=== PATIENT | male | born 1955 | race Caucasian/White ===

== ENCOUNTER 2018-10-19 06:31 | Observation (INO) | payer OTHER ==
[2018-10-19] VITALS (13 sets, daily range): BP systolic 85–120; BP diastolic 43–72
[~2018-10-19] VITALS: Ht 188 cm; Wt 86.7 kg
[~2018-10-19 06:31] MED LIST: BRILINTA90 MG PO; CLOPIDOGREL75 MG PO; ELIQUIS5 MG PO; FISH OIL 1,001000 M2 PO; GINKGO BILOBA120 M1 PO; IBUPROFEN 800800 M1 PO; LEVITRA20 MG PO; LIPITOR80 MG PO; LOVASTATIN 20 M20 MG PO; MELATONIN5 M1 PO; NOHOMEMEDICATIONS; RESTORIL15 MG PO; SORINE 80 MG TA80 M1 PO; SOTALOL80 MG PO; THERA-M CAPLET1 EAC2 PO; TYLENOL325 MG PO; ZANTAC 150MG T150 MG PO
[2018-10-19 07:19] LABS: ABSOLUTE NEUTROPHILS 5.6 thou/uL (1.4-8.2); BASOPHILS 0.7 % (0.0-2.0); EOSINOPHILS 1.5 % (0.0-3.0); HEMOGLOBIN 14.9 gm/dL (14.0-18.0); LYMPHOCYTES 17.9 % (24.0-44.0); MCH 30.7 pg (26.0-34.0); MCHC 33.9 g/dL (28.0-37.0); MCV 90.8 fL (80.0-100.0); MONOCYTES 6.4 % (1.0-8.0); PLATELET COUNT 199 thou/uL (150-400); POLYS 73.5 % (36.0-66.0); RBC 4.84 mil/uL (4.50-6.00); RDW 13.7 % (10.5-14.5); WBC 7.6 thou/uL (4.0-11.0)
[2018-10-19 07:27] LABS: POTASSIUM 3.9 mmol/L (3.5-5.1)
--- NOTE | 2018-10-19 18:49 | NUR ---
ASSUMED CARE AT 1400, SHIFT ASSESSMENT DONE, MEDS GIVEN, VSS. CAME FROM ABLATION AT 1400, MYNX CLOSURE DEVICE, CLEAN, DRY, INTACT, SOFT TO TOUCH, NO HEMATOMA. WAS ON BEDREST UNTIL 1730. JARAMILLO WAS TAKEN OUT AFTER BEDREST WAS OVER. PT ABLE TO URINATE AFTERWARDS. DID REPORT OF BURNING WITH URINATION WHEN JARAMILLO WAS IN, DR JIMENEZ WAS CALLED, INSRUCTED TO GIVE PAIN MED, ADMINISTERED WITH RELIEF. WILL CONTINUE TO ASSESS AND ASSIST WITH ADLs NEEEDED.
[2018-10-20 03:59] VITALS: BP 102/57
--- NOTE | 2018-10-20 06:00 | NUR ---
A/O X 4.DENIES PAIN.RIGHT GROIN DRESSING C/D/I.NO HEMATOMA NOTED.MONITOR SHOWS SINUS VIVIANE IN THE 40'S TO 50'S.WILL MONITOR AND CONTINUE POC.
[2018-10-20 07:45] VITALS: BP 98/49
[2018-10-20 10:40] VITALS: BP 98/49
[2018-10-20 11:36] VITALS: BP 103/51
--- NOTE | 2018-10-20 22:51 | D ---
[facility] [place] [address] DISCHARGE SUMMARY Name: CRISTIAN HERBERT Room #: 204-P [facility] Pretty Mckinney#: [id number] Admission: 10/19/18 ������������������ Attend Phys: Dalton Koo MD Discharge: 10/20/18 ������������������ Date of : 59 Report #: [id number] THIS REPORT FOR: //name// CC: Fuentes Koo [facility] DATE OF SERVICE: 10/20/2018 FINAL DIAGNOSES: 1. Atrial fibrillation status post ablation. 2. History of coronary artery disease with stent placement. 3. Tobacco use. 4. Hypertension. 5. Bradycardia. HOSPITAL COURSE: Please see the original H and P for full details. The patient has a history of paroxysmal atrial fibrillation with a prior history of cardioversion. He had been maintained on antiarrhythmic therapy, however, presented with recurrent atrial fibrillation with a rapid ventricular rate. He presented electively for an atrial fibrillation ablation, performed by Dr. Koo. He remained stable overnight. No further episodes of atrial fibrillation. He remained stable and will be discharged home. He will continue on Plavix 75 mg daily, Lipitor 80 mg, Eliquis 5 mg twice a day, sotalol as directed. He is instructed to follow up with his elementary secretary and Dr. Koo. ��������������������������������������������� <ELECTRONICALLY SIGNED> ���������������������������������������� By: Venkata Alexis MD ��������������������������������������������� 10/20/18 2251 1029 1811 MD richar Gomez
--- NOTE | 2018-10-23 17:05 | P ---
[facility] [place] [address] PROCEDURE REPORT Name: CRISTIAN HERBERT Room #: 204-P [facility] M.R.#: [id number] Admission: 10/19/18 ������������������ Attend Phys: Dalton Koo MD Discharge: 10/20/18 ������������������ Date of : 59 Report #: [id number] THIS REPORT FOR: //name// CC: Fuentes Koo [facility] DATE OF SERVICE: 10/19/2018 PREOPERATIVE DIAGNOSIS: Atrial fibrillation. POSTOPERATIVE DIAGNOSIS: Atrial fibrillation. PROCEDURES PERFORMED: 1. Atrial fibrillation ablation, CPT code 87838. 2. 3D mapping, CPT code 35437. 3. Intracardiac echo, CPT code 13915. HISTORY: The patient is a 63-year-old with history of AFib, here for ablation. ANESTHESIA: The patient underwent general anesthesia with no anesthesia related complications. DESCRIPTION OF PROCEDURE: The patient underwent informed consent. We discussed the details of the procedure including the risks, which include but not limited to bleeding, vascular damage, cardiac perforation, stroke and [place]. He understood these risks and is willing to proceed. The patient was brought to the EP laboratory in a fasting and sedated state, prepped and draped in a sterile fashion. I obtained access to the right femoral vein x 3, placing an 8, 9 and 7-Kenyan short sheath using the modified Seldinger technique. Next, under fluoroscopy, I placed a decapolar catheter easily in the coronary sinus and an ICE catheter in the right atrium. Using intracardiac ultrasound, I created a detailed 3D geometry of the left atrium and this was merged with the cardiac CT scan. At baseline, the patient was in sinus rhythm with a sinus cycle length of 1110 milliseconds, TX interval 165 milliseconds, QRS duration 90 milliseconds, QT interval 450 milliseconds. The patient did have periods of time when he would go into a junctional rhythm. Next, the patient was systemically heparinized and a transseptal was performed using an SL1 sheath and a Graham needle. The patient had a nice thin interatrial septum and came on with the Graham needle and advanced the wire into the left common ostium. Of note, the patient had a large left common ostium with the superior and inferior branch and a right superior and right inferior branch. I could not easily cross with the SL1 sheath, therefore, I left the wire in the left common and then I advanced the cryo sheath into the left atrium without any issues. Next, I placed a [employer] Huff Lasso catheter in the left atrium and created [facility] [address] [place] [address] PROCEDURE REPORT Name: CRISTIAN HERBERT Room #: 204-P [facility]..#: [id number] Admission: 10/19/18 ������������������ Attend Phys: Dalton Koo MD Discharge: 10/20/18 ������������������ Date of : 59 Report #: [id number] a 3D voltage map of the left atrium, which showed that the left and right-sided veins were connected. The voltage in the left atrium was otherwise healthy. I placed the cryoballoon into the left atrium and I started by freezing the upper branch of the left common ostium. I performed an initial 4-minute freeze and then performed a second 4-minute freeze with a slightly more deflected approach with the balloon, which resulted in good occlusion. This resulted in isolation of the left superior branch within 17 seconds. The second freeze was of 4 minutes' duration. I then turned my attention to the left lower branch and this appeared to be almost isolated. There were some small signals noted. Therefore, I performed a single freeze in this lower branch that was of 4 minutes' duration and the signals in this vein isolated within 28 seconds. I therefore re-interrogated the entire left common ostium and it appears that this was isolated. I then turned my attention to the right-sided veins and placed the decapolar catheter into the subclavian vessel and performed phrenic nerve pacing from this position. The first freeze had very good temps that reached -54 degrees. I came off at around 80 seconds as I started noticing that the phrenic was starting to weaken. I waited for 2 to 3 minutes and the phrenic returned to 100% strength. I therefore performed a second freeze in this vessel that was somewhat less occlusive than the first freeze and this vein remained isolated. I then turned my attention to the right inferior pulmonary vein. I performed a 90-second freeze and came off early because the temps were reaching -55 degrees. The vein did isolate within 45 seconds and during this freeze there was never any issues with the phrenic nerve. Therefore, again I performed a less occlusive freeze of the right inferior pulmonary vein and this freeze was of 180 seconds duration. Next, I removed my cryoballoon from the left atrium and placed the Lasso catheter back and created a voltage map and this demonstrated that we had created a wide circumferential ablation of the left common ostium and the right-sided veins. As such, I now performed a basic EP study. Atrial burst pacing was performed from the decapolar catheter placed in the CS. AV block was noted at 300 milliseconds. Atrial ERP was noted 230 milliseconds at [address] cycle length. Double atrial extrastimuli were delivered and no SVT was induced. I then performed aggressive atrial burst pacing between 270-290 milliseconds with no induction of any AFib or atrial flutter. As such, the procedure was concluded. The patient received systemic protamine and once ACT was within acceptable range, catheters and sheaths were pulled. Hemostasis was obtained. The patient awoke neurologically and hemodynamically intact. No complications and no significant bleeding. CONCLUSIONS: 1. Successful AFib ablation with wide circumferential ablation of the left and [facility] [address] [place] [address] PROCEDURE REPORT Name: CRISTIAN HERBERT Room #: 204-P [facility] Pretty Mckinney#: [id number] Admission: 10/19/18 ������������������ Attend Phys: Dalton Koo MD Discharge: 10/20/18 ������������������ Date of : 59 Report #: [id number] right-sided veins. 2. Normal EP study with no inducible arrhythmias. ��������������������������������������������� <ELECTRONICALLY SIGNED> ���������������������������������������� By: Dalton Koo MD ��������������������������������������������� 10/23/18 1705 1231 0208 Dalton Koo MD /nt
== END 2018-10-20 14:27 | disposition home or self-care (01) ==
LOC: CATH 06:31 → 2N 09:40
PROVIDERS: ADMIT Internal Medicine Cardiovascular Disease
DX: I48.91 Unspecified atrial fibrillation (principal); I25.10 Atherosclerotic heart disease of native coronary artery without angina pectoris; I10 Essential (primary) hypertension; Z72.0 Tobacco use; Z95.5 Presence of coronary angioplasty implant and graft
CPT/HCPCS: 62110; 62900; 65020; 65040; 70005

== ENCOUNTER 2019-02-15 06:27 | Inpatient (IN) | payer BC, OTHER ==
[~2019-02-15] VITALS: Ht 188 cm; Wt 82.0 kg
--- NOTE | ~2019-02-15 | P ---
[facility] [place] [address] PROCEDURE REPORT Name: KEONCRISTIAN MAURICIO [facility] [id number] Admission: 02/15/19 Attend Phys: Dalton Koo MD Discharge: Date of : 59 Report #: [id number] THIS REPORT FOR: //name// CC: Dalton Samaniego PREOPERATIVE DIAGNOSES: 1. Atrial fibrillation. 2. Typical atrial flutter. HISTORY: The patient is a 63-year-old male status post recent AFib ablation. Post-procedure, he has had 2 episodes of typical atrial flutter after stopping his sotalol therapy. He is here for a repeat AFib ablation and atrial flutter ablation. PROCEDURES PERFORMED: 1. AFib ablation, CPT code 13850. 2. Program stimulation pacing after IV drug infusion, CPT code 50143. 3. 3D mapping, CPT code 69750. 4. Intracardiac echo, CPT code 85091. 5. Second pathway ablation, CPT code 26015. ANESTHESIA: The patient underwent general anesthesia with no anesthesia related complications. DESCRIPTION OF PROCEDURE: The patient underwent informed consent, where we discussed the details of the procedure including the risks, which include but not limited to bleeding, infection, vascular damage, cardiac perforation as well as stroke or [place]. He understood these risks and is willing to proceed. The patient was brought to the EP laboratory in a fasting and sedated state, prepped and draped in a sterile fashion. I obtained access to the bilateral femoral veins placing two 8-Mongolian short sheaths in the right femoral vein and a 7 and 9-Mongolian short sheath in left femoral vein using the modified Seldinger technique. Next, under fluoroscopy, a decapolar catheter was easily placed into the coronary sinus and ice catheter was placed in the right atrium. At baseline, the patient was in sinus rhythm with periods of junctional rhythm. Using intracardiac ultrasound, I created a 3D geometry of the left atrium with evidence of a left common ostium and right superior and right inferior pulmonary veins. The patient was systemically heparinized and a transseptal was performed with the SL1 sheath and a [place] needle. He has a nice thin interatrial septum and the transseptal was straightforward. Once the SL1 was in the left atrium, I placed a PentaRay catheter in the left atrium and created a detailed 3D geometry and voltage map of the left atrium. There was evidence of reconnection of the left common ostium at the inferior aspect of the vein. The superior branch appeared to be isolated. I had difficulties getting my PentaRay into the inferior branch. The right superior vein was isolated and the right inferior [address] [address] PROCEDURE REPORT Name: CRISTIAN HERBERT Room #: REG [facility] Mckinney#: [id number] Admission: 02/15/19 Attend Phys: Dalton Koo MD Discharge: Date of : 59 Report #: [id number] pulmonary vein had 1 very small potential that captured, but essentially appeared to be completely isolated. I therefore exchanged my PentaRay for an ablation catheter and I re-isolated the left common ostium, starting from the posterior roof region and ablating all the way down inferiorly and then anteriorly below the common ostium. I then turned my attention to the right inferior pulmonary vein and I performed ablation at the areas of signals along the posterior cristina of the vein. A repeat voltage map was created and now there was clear isolation of these veins. As such, I pulled over to the right atrium to proceed with atrial flutter ablation. SECOND ABLATION FOR TYPICAL ATRIAL FLUTTER: Next, an atrial flutter ablation was performed. I initially attempted to perform this using just the ablation catheter via the 8-Mongolian short sheath. The transisthmus conduction time pre-ablation was 50 milliseconds. I performed a continuous drag lesion at 6 o'clock along the cavotricuspid isthmus and there was not evidence of block. I therefore attempted to ablate via the SL1 sheath, but this was unsuccessful. Therefore, I exchanged to a ramp sheath and performed additional ablation. Despite this, it still did not appear that we had bidirectional block. I therefore placed [facility] [place] Livewire catheter to better visualize transconduction along the isthmus. This was verified that we did not have block. I therefore now performed a more lateral line and there were significant signals in this area. I continued pulling back and connected this more lateral line with my other line. Then, I performed testing and we now had clear evidence of bidirectional block with transisthmus conduction time of 135 milliseconds with differential pacing also consistent with lateral to medial block. POST-ABLATION ELECTROPHYSIOLOGY STUDY: Post-ablation EP study was performed. At baseline, AV block was noted at 310 milliseconds. Atrial ERP was noted at 280 milliseconds at a [address] cycle length. Double atrial extrastimuli were delivered and no SVT was induced. Next, isoproterenol infusion was started at 2 mcg per minute and once this took effect, additional testing was performed. AV block was now noted at 280 milliseconds and atrial ERP was at 270 milliseconds at [address] cycle length. As such, the patient had no inducible arrhythmias and the procedure was concluded. Using intracardiac ultrasound, I verified there was no pericardial effusion. The patient received systemic protamine. Once ACT was within acceptable range, all catheters and sheaths were pulled and hemostasis obtained. The patient awoke neurologically and hemodynamically intact. No complications and no significant bleeding. CONCLUSIONS: 1. Successful AFib ablation with re-isolation of the left common ostium in the right inferior pulmonary vein. 2. Successful atrial flutter ablation with evidence of bidirectional block. [facility] [address] [place] [address] PROCEDURE REPORT Name: CRISTIAN HERBERT Room #: REG FRANCOISE Mckinney#: [id number] Admission: 02/15/19 Attend Phys: Dalton Koo MD Discharge: Date of : 59 Report #: [id number] 3. Normal EP study on and off isoproterenol infusion with no inducible arrhythmias. By: [id number] 1409 Dalton Koo MD /nt
[2019-02-15 07:21] VITALS: BP 108/73
[2019-02-15 07:29] LABS: ABSOLUTE NEUTROPHILS 5.9 thou/uL (1.4-8.2); BASOPHILS 0.5 % (0.0-2.0); EOSINOPHILS 1.3 % (0.0-3.0); HEMATOCRIT 45.6 % (42.0-52.0); HEMOGLOBIN 15.5 gm/dL (14.0-18.0); LYMPHOCYTES 16.1 % (24.0-44.0); MCH 30.4 pg (26.0-34.0); MCHC 33.9 g/dL (28.0-37.0); MCV 89.6 fL (80.0-100.0); MONOCYTES 6.8 % (1.0-8.0); PLATELET COUNT 251 thou/uL (150-400); POLYS 75.3 % (36.0-66.0); RBC 5.09 mil/uL (4.50-6.00); RDW 13.6 % (10.5-14.5); WBC 7.9 thou/uL (4.0-11.0)
[2019-02-15 07:30] LABS: CALCIUM 9.1 mg/dL (8.5-10.1); CREATININE 1.1 mg/dL (0.7-1.3); PROTIME 10.7 Seconds (9.3-11.4)
[2019-02-15 07:36] LABS: TOTAL BILIRUBIN 0.5 mg/dL (<0.1-1.0); TOTAL PROTEIN 7.7 g/dL (6.4-8.2)
[2019-02-15] MEDS ORDERED: CIALIS10 MG PO (07:36)
[2019-02-15] MEDS ORDERED: MELATONIN5 MG SUBLING (07:37)
[2019-02-15 14:20] VITALS: BP 94/54
[2019-02-15 15:20] VITALS: BP 102/59; BP 102/79
[2019-02-15 16:20] VITALS: BP 111/68
[2019-02-15 19:31] VITALS: BP 107/58
[2019-02-15 23:32] VITALS: BP 106/59
[2019-02-16 04:48] VITALS: BP 99/62
[2019-02-16 07:51] VITALS: BP 98/61
[2019-02-16 09:58] VITALS: BP 98/61
== END 2019-02-16 11:09 | disposition home or self-care (01) | DRG 274 ==
LOC: CATH 06:27 → 2N 14:48 → CATH 19:18 → 2N 02-16 11:09
PROVIDERS: ADMIT Internal Medicine Cardiovascular Disease
PROC: 02583ZZ Destruction of Conduction Mechanism, Percutaneous Approach (ICD-10-PCS; principal; 2019-02-15)
DX: I48.0 Paroxysmal atrial fibrillation (principal); I48.92 Unspecified atrial flutter; I25.10 Atherosclerotic heart disease of native coronary artery without angina pectoris; F17.210 Nicotine dependence, cigarettes, uncomplicated; G47.00 Insomnia, unspecified; E78.5 Hyperlipidemia, unspecified; Z88.6 Allergy status to analgesic agent; Z95.5 Presence of coronary angioplasty implant and graft; Z82.49 Family history of ischemic heart disease and other diseases of the circulatory system; Z82.3 Family history of stroke
CPT/HCPCS: 10081; 62110; 62900; 65020; 65040; 70005